=== PATIENT | male | born 1970 | race Caucasian/White ===

== ENCOUNTER 2024-05-15 11:55 | Emergency (ER) | payer OTHER, SELFPAY ==
[2024-05-15 11:58] VITALS: BMI 31.0
--- NOTE | 2024-05-15 12:03 | DI.RAD.S_ITS ---
PROCEDURE: XR CHEST 1V INDICATIONS: chest pain TECHNIQUE: One view of the chest was acquired. COMPARISON: None. FINDINGS: Surgical changes and devices: None. Lungs and pleura: Lung volumes are slightly low but lungs are clear. No pleural effusions or pneumothorax. Mediastinum: Mediastinal contours appear normal. Heart size is normal. Bones and chest wall: No suspicious bony lesions. Overlying soft tissues appear unremarkable. Query a nondisplaced fracture of the right 8th posterior rib with callus formation IMPRESSION: 1. No acute cardiopulmonary process. 2. Query a nondisplaced fracture of the right AC posterior rib which appears chronic. Correlate for point tenderness. Dictated by: Nubia Villalba M.D. on 05/15/2024 at 13:00 Approved by: Nubia Villalba M.D. on 05/15/2024 at 13:01
[2024-05-15 12:04] VITALS: BP 171/104; PULSE 84; O2SAT 94
--- NOTE | 2024-05-15 12:06 | EKG_ITS ---
[address] [address] Test Date: 2024-05-15 Pat Name: Hipolito Taylor Department: [facility] Room: Gender: Male Meal Cooker: NEHA : 1970 Requested By: Order Number: [id number] Reading MD: Samy Gomez Measurements Intervals [place] Rate: 80 P: 8 CA: 152 QRS: 12 QRSD: 88 T: 0 QT: 334 QTc: 385 Interpretive Statements Normal sinus rhythm Electronically Signed On 05-17-2024 18:26:14 PDT by Samy Gomez
[2024-05-15 12:09] VITALS: BP 171/104; PULSE 84; RESP 14; TEMP 37; O2SAT 96
[2024-05-15 12:10] VITALS: BMI 31.0
[2024-05-15 12:30] VITALS: BP 167/119; PULSE 86; RESP 30; O2SAT 94
[2024-05-15 12:31] LABS: Add Manual Diff / Slide Review NO; Basophils Absolute Auto 100 /uL (0-100); Basophils Percent Auto 0.8 % (0-2); Eosinophils Absolute Auto 700 /uL (0-450); Eosinophils Percent Auto 10.4 % (2-4); Hematocrit 51.1 % (41-53); Hemoglobin 17.6 g/dL (13.5-17.5); Lymphocytes Absolute Auto 1500 /uL (1100-4500); Lymphocytes Percent Auto 23.3 % (25-40); Mean Corpuscular HGB Conc 34.5 % (30-36); Mean Corpuscular Hemoglobin 30.2 PG (26-34); Mean Corpuscular Volume 87.6 fL (80-100); Monocytes Absolute Auto 600 /uL (0-900); Monocytes Percent Auto 8.8 % (3-14); Neutrophils Absolute Auto 3600 /uL (1500-7000); Neutrophils Percent Auto 56.7 % (50-75); Platelet Count 319 X10^3/uL (150-400); Red Blood Cell Count 5.83 X10^6/uL (4.5-5.9); Red Cell Distribution Width 13.2 % (11.6-14.8); White Blood Cell Count 6.3 X10^3/uL (4.5-11.0)
[2024-05-15 12:37] LABS: Prothrombin Time 10.9 SECONDS (9.4-12.5)
[2024-05-15 12:39] LABS: PTT Partial Thromboplastin Tim 37 SECONDS (25.1-36.5)
[2024-05-15 12:46] LABS: Alanine Aminotransferase 50 IU/L (<50); Albumin 4.5 g/dL (3.5-5.0); Albumin Globulin Ratio 1.7 (1.0-2.8); Alkaline Phosphatase 61 U/L (38-126); Aspartate Aminotransferase 40 IU/L (17-59); BUN Creatinine Ratio 15.5 (6-22); Bilirubin Total 0.7 mg/dL (0.2-1.3); Blood Urea Nitrogen 17 mg/dL (9-20); Calcium 9.4 mg/dL (8.4-10.2); Carbon Dioxide 24 mmol/L (22-32); Chloride 105 mmol/L (98-107); Creatine Kinase 236 U/L (55-170); Estimated Glomerular Filt Rate > 60 mL/min (>60); Globulin 2.6 g/dL (1.7-4.1); Glucose 112 mg/dL (70-100); HEMOLYSIS 38 (0-50); Lipase 78 U/L (23-300); Potassium 4.2 mmol/L (3.4-5.1); Sodium 138 mmol/L (137-145); Total Protein 7.1 g/dL (6.3-8.2)
[2024-05-15 12:57] LABS: NT-proBNP (BNP-Adult 18+) 37 pg/mL (<125); Troponin I < 0.012 ng/mL (0.01-0.034)
[2024-05-15 13:00] VITALS: BP 164/101; PULSE 85; RESP 16; O2SAT 94
[2024-05-15 13:30] VITALS: BP 171/106; PULSE 86; RESP 26; O2SAT 94
--- NOTE | 2024-05-15 13:55 | ED_ITS ---
HPI - Chest Pain General Chief Complaint: Chest Pain Stated Complaint: sent by [facility]/inferior ischemia Time Seen by Provider: 05/15/24 13:55 Source: patient, RN notes reviewed, old records reviewed and other Mode of arrival: Ambulatory Limitations: no limitations History of Present Illness HPI narrative: 54-year-old male history of hypertension, asthma/bronchitis, insomnia chronic pain who to the [facility] for follow up visit medication refills. He notes he has had some greenish phlegm that he has been coughing up for the past week with some chest tightness. He states he gets bronchitis every couple months is having a similar episode. Denies fevers or chills. States no chest pain but has been a little bit tight and felt a little wheezy. He states no nausea or vomiting no diaphoresis, no new swelling of extremities he states it is very typical when he gets his bronchitis episodes. He has been taking cough medication. He states that when he told them he had a cough and chest tightness they did an EKG which read as inferior ischemia and he was told he had to come to the ED. patient states he uses albuterol and Advair regularly, has not felt like he is needed more than normal but has felt a little tight. Takes lisinopril and testosterone along with his inhalers. States prior umbilical hernia repair, back surgery, had a prior sternal fracture from trauma when he was in the . No known drug allergies. No tobacco, alcohol or recreational drugs. Patient follows with the [facility] for his primary care. Related Data Previous Rx's Medication Instructions Recorded azithromycin 250 mg tablet See Rx Instructions PO .COMPLEX #6 05/15/24 tabs prednisone 10 mg tablets in a dose See Rx Instructions PO .COMPLEX 05/15/24 pack #21 ea Allergies Allergy/AdvReac Type Severity Reaction Status Date / Time No Known Drug Allergies Allergy Verified 05/15/24 12:09 Review of Systems Review of Systems ROS Unobtainable: All systems reviewed & are unremarkable except as noted in HPI and below Patient History Social History Smoking Status: Unknown if ever smoked Smoking Status: Unknown if ever smoked alcohol intake frequency: holidays/special occasions only Substance Use Type: does not use Exam Narrative Exam Narrative: GENERAL: Alert and oriented x three, well-appearing male in mild distress. HEENT: Head normocephalic, atraumatic, EOMI, pupils reactive, face symmetric, moist mucous membranes NECK: Supple, full range of motion CARDIOVASCULAR: Regular rate and rhythm without murmurs, rubs or gallops. RESPIRATORY: Breath sounds equal bilaterally, patient has mild wheeze right base, no tachypnea, no accessory muscle use. Mild crackles on the right as well. Patient speaks in full sentences. ABDOMEN: Soft, nontender. Normoactive bowel sounds all 4 quadrants. No guarding or rebound, rigidity, no mass : No CVA tenderness EXTREMITIES: Normal range of motion, no clubbing or edema. Neurovascularly intact NEUROLOGICAL: Cranial nerves II through XII grossly intact. Moving all extremities SKIN: Warm, dry, no petechiae, no rashes or lesions. Initial Vital Signs Initial Vital Signs: Vital Signs Pulse Rate 84 05/15/24 12:04 Blood Pressure 171/104 H 05/15/24 12:04 Pulse Oximetry 94 05/15/24 12:04 Course Orders Ordered: ED Orders 05/15/24 12:03 XR chest 1V Stat EKG-12 Lead Stat 05/15/24 12:13 Complete Blood Count AUTO DIFF Stat Comprehensive Metabolic Panel Stat Lipase Stat Magnesium Stat NT-proBNP (BNP-Adult 18+) Stat PTT Partial Thromboplastin Dago Stat Prothrombin Time INR Stat Troponin & CK Cardiac Panel Stat 05/15/24 14:15 EKG-12 Lead Stat Discontinued Medications Aspirin (Aspirin 81 Mg Chew Tab) 324 mg PO NOW ONE Stop: 05/15/24 12:04 Last Admin: 05/15/24 14:14 Dose: Not Given Documented By: BS Vital Signs Vital signs: Vital Signs - 8 hr 05/15/24 12:04 05/15/24 12:04 05/15/24 12:09 Temperature 98.6 F Pulse Rate 84 84 Respiratory Rate 14 Blood Pressure 171/104 H 171/104 H Pulse Oximetry 94 96 Oxygen Delivery Method Room Air 05/15/24 12:30 05/15/24 12:30 05/15/24 13:00 Temperature Pulse Rate 86 85 Respiratory Rate 30 H 16 Blood Pressure 167/119 H Pulse Oximetry 94 94 Oxygen Delivery Method Room Air 05/15/24 13:00 05/15/24 13:30 05/15/24 13:30 Temperature Pulse Rate 86 Respiratory Rate 26 H Blood Pressure 164/101 H 171/106 H Pulse Oximetry 94 Oxygen Delivery Method 05/15/24 14:00 05/15/24 14:00 Temperature Pulse Rate 89 Respiratory Rate 27 H Blood Pressure 161/110 H Pulse Oximetry 94 Oxygen Delivery Method Room Air MDM - Chest Pain Lab Data 05/15/24 12:13 05/15/24 12:13 Labs: Lab Results 05/15/24 Range/Units 12:13 WBC 6.3 (4.5-11.0) X10^3/uL RBC 5.83 (4.5-5.9) X10^6/uL Hgb 17.6 H (13.5-17.5) g/dL Hct 51.1 (41-53) % MCV 87.6 (80-100) fL MCH 30.2 (26-34) PG MCHC 34.5 (30-36) % RDW 13.2 (11.6-14.8) % Plt Count 319 (150-400) X10^3/uL Neut % (Auto) 56.7 (50-75) % Lymph % (Auto) 23.3 L (25-40) % Island % (Auto) 8.8 (3-14) % Eos % (Auto) 10.4 H (2-4) % Baso % (Auto) 0.8 (0-2) % Neut # (Auto) 3600 (1730-0912) /uL Lymph # (Auto) 1500 (6884-7510) /uL Island # (Auto) 600 (0-900) /uL Eos # (Auto) 700 H (0-450) /uL Baso # (Auto) 100 (0-100) /uL PT 10.9 (9.4-12.5) SECONDS INR 1.0 (0.9-1.3) APTT 37 H (25.1-36.5) SECONDS Sodium 138 (137-145) mmol/L Potassium 4.2 (3.4-5.1) mmol/L Chloride 105 (98-107) mmol/L Carbon Dioxide 24 (22-32) mmol/L BUN 17 (9-20) mg/dL Creatinine 1.10 (0.66-1.25) mg/dL Estimated GFR > 60 (>60) mL/min BUN/Creatinine Ratio 15.5 (6-22) Glucose 112 H (70-100) mg/dL Calcium 9.4 (8.4-10.2) mg/dL Magnesium 2.0 (1.6-2.3) mg/dL Total Bilirubin 0.7 (0.2-1.3) mg/dL AST 40 (17-59) IU/L ALT 50 H (<50) IU/L Alkaline Phosphatase 61 (38-126) U/L Total Creatine Kinase 236 H (55-170) U/L Troponin I < 0.012 (0.01-0.034) ng/mL NT-Pro-B Natriuret Pep 37 (<125) pg/mL Total Protein 7.1 (6.3-8.2) g/dL Albumin 4.5 (3.5-5.0) g/dL Globulin 2.6 (1.7-4.1) g/dL Albumin/Globulin Ratio 1.7 (1.0-2.8) Lipase 78 (23-300) U/L ECG Data Attestation: I personally reviewed and interpreted this ECG as follows: Interpretation: Sinus rhythm rate of 80 RI 152 QRS 88 QTC 385, no acute ST elevation, some nonspecific change. 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 Does have an EKG from the [email or web address] sent with the patient had inverted T-wave in 3 but no other acute EKG changes appreciated. [facility] Narrative Medical decision making narrative: 54-year-old male who presents from the [employer] [facility] being told he had inferior ischemia on his EKG, he would gone for medication refills he has had 2 weeks of chest tightness with green productive cough but has been afebrile. States he gets bronchitis every 3 or 4 months and has been taking antitussives. States he has not had significant increase in use of his Advair or albuterol. Describes this is very typical pattern of symptoms for him. Labs show white count of 6.3 hemoglobin of 7.8 0.6, platelets of 319, INR 1, electrolytes are normal, BUN 17, creatinine is 1.11, glucose is 112 LFTs are negative total CK is 236, ALT is 50 but normal AST bilirubin in lipase. Troponins less than 0.012 with a BNP of 37 Chest x-ray shows no acute change questionable nondisplaced fracture right AC posterior rib appears chronic. EKG shows no acute changes no priors comparison in cardio windows server engineer but had EKG from the base which showed inverted T-wave in lead 3 AVF without any other change Discussed with patient his symptoms and exam findings seem most consistent with bronchitis versus pneumonia. Patient does not have obvious pneumonia on chest x-ray but does have wheeze and crackles in his right base. He is well-appearing nontoxic. Discussed with patient can repeat troponin but suspicion for cardiac source is much lower he defers and would like to return home. We will send prescription for prednisone as well as antibiotic for clinical pneumonia. Discharge Plan Departure Patient Disposition: Home Clinical Impression: Bronchitis Activity Restrictions/Additional Instructions: You do have some wheeze on your exam as well as crackles on the right your chest x-ray is clear but I suspect you have little bit of clinical pneumonia/bronchitis. Continue to use your Advair and albuterol as prescribed. Take prednisone once daily until gone. I recommend taking this medication with food. If your symptoms are not improving over the next 1-2 days go ahead and start the oral antibiotic prescribed. [facility] [place] Please return for new chest pain, increasing shortness of breath, lightheadedness or passing out, fevers, coughing up blood, new swelling in extremities or other new or concerning changes. Prescriptions: New prednisone 10 mg tablets,dose pack See Rx Instructions .ROUTE .COMPLEX Qty: 21 0RF Rx Instructions: 6 tabs p.o. x1 day, then 5 tabs p.o. x1 day, then 4 tablets p.o. x1 day, then 3 tabs p.o. x1 day, then 2 tabs p.o. x1 day, then 1 tab p.o. x1 day azithromycin 250 mg tablet See Rx Instructions .ROUTE .COMPLEX Qty: 6 0RF Rx Instructions: For 250 mg dose pack: take 500 mg today (day 1), then 250 mg for 4 days (days 2-5) Stand Alone Forms: Patient Portal/API
[2024-05-15 14:00] VITALS: BP 161/110; PULSE 89; RESP 27; O2SAT 94
== END 2024-05-15 14:26 | disposition home or self-care (01) ==
PROVIDERS: Emergency Provider Emergency Medicine
DX: J40 Bronchitis, not specified as acute or chronic (principal)
CPT/HCPCS: 36415; 71045; 80053; 82550; 83690; 83735; 83880; 84484; 85025; 85610; 85730; 93005; 99283; 99284